=== PATIENT | female | born 1955 | race African-American/Black ===

== ENCOUNTER → 2017-03-27 | Day surgery (SDC) | payer MEDICARE ==
[~2017-03-27] MED LIST: ALBU.5I NEB; ANAS1TAB PO; ASPI-110 PO; ATOR20TA15 PO; CARV12.52 PO; CHLORHEXIDINE GLUCONATE 2 % 1 PACK (2 CLOTHS) TOPICAL PRN; FERR325T8 PO; FURO1TAB60 PO; INSULIN HUMAN REGULAR 1,000 UNITS/10 ML VIAL SQ PRN; LACTATED RINGER'S 1000 ML IV PRN; LEVEMIR SQ; LORA-373 PO; MECL-62 PO; METOPROLOL TARTRATE 25 MG TAB PO PRN; NITR0.4S SL; NOVOLOGP2 SQ; ONDA1TAB17 PO; POVIDONE IODINE 5% (ANTISEPSIS KIT) 4 APPLICATIONS EACH NARE PRN; PROT40TA PO; SERT-129 PO; SERT25TA83 PO; SODIUM CHLORID 0.9% 500 ML IV PRN; SPIR50TA PO; TRAM50TA PO; VITA1000 PO
[2017-03-27 07:45] VITALS: BP 174/87; PULSE 94; RESP 18; TEMP 98.3; O2SAT 95
--- NOTE | 2017-03-27 08:46 | RADRPT ---
EXAM DATE/TIME: 03/27/2017 07:33 [facility] COMPARISON: No previous studies available for comparison. INDICATIONS : Evaluate for pneumonia, pneumothorax or communicable disease. Pre-op, AV fistual. MEDICAL HISTORY : Hypertension. Hypercholesterolemia. Myocardial infarction. SURGICAL HISTORY : CABG. Stents, Vas Cath ENCOUNTER: Initial ACUITY: 1 day PAIN SCORE: 0/10 LOCATION: Bilateral chest FINDINGS: A single view of the chest demonstrates the lungs to be hypoaerated without evidence of mass, infiltr ate or effusion. Cardiomegaly. Previous median sternotomy. Right-sided jugular vascular catheter wit h tip at the cavoatrial junction. The cardiomediastinal contours are unremarkable. Osseous structure s are intact. CONCLUSION: Cardiomegaly with diminished lung volumes. Piotr Medina MD on March 27, 2017 at 8:45 Board Certified Radiologist. This report was verified electronically.
== END | disposition home or self-care (01) ==
LOC: HSDC 07:15
PROVIDERS: ATTEND Surgery
DX: N18.6 End stage renal disease (principal); I12.0 Hypertensive chronic kidney disease with stage 5 chronic kidney disease or end stage renal disease; I10 Essential (primary) hypertension
CPT/HCPCS: 71010; G0463; 99211

== ENCOUNTER → 2017-04-08 | Day surgery (SDC) | payer MEDICARE ==
[~2017-04-08] VITALS: Ht 172.7 cm; Wt 85.2 kg
[~2017-04-08] MED LIST changes: +BUPIVACAINE HCL PF 0.5% 30 ML VIAL ONE; +DO NOT ADM ANY ANTICOAGULANT DRUGS PRN; +HEPARIN SODIUM - IV 10,000 UNITS/10 ML VIAL ONE; +HEPARIN-NS/PF INJ 500 ML ONE; +Hemodialysis Vas Acc Cath PRN Heparin 1000 unit/ml Flush IV FLUSH; +Hemodialysis Vas Access Cath PRN NS Lock Flush IV FLUSH; +KETAMINE HCL 500 MG/5 ML VIAL ONE; +LIDOCAINE HCL 1% 20 ML VIAL ONE; +ONDANSETRON HCL 4 MG/2 ML VIAL IV PUSH ONE; +PROPOFOL 200 MG/20 ML AMP IV ONE; +PROTAMINE SULFATE 50 MG/5 ML VIAL ONE; +SODIUM CHLOR 0.9% 250 ML INJ 250 ML IV ONE; +STERILE WATER FOR INJECTION 20 ML VIAL IV ONE; +THROMBIN (TOPICAL) 20,000 UNIT SPRAY KIT ONE
--- NOTE | 2017-04-08 09:18 | PD.VS.PN ---
Pre-operative Note Pre-operative diagnosis: ESRD, need for HD access Planned procedure: L brachiobasilic AVF (1st stage) Interval History: Pt has been feeling well over past few days. Jace HD yesterday. No F/C/N/V or other changes that would preclude surgery. Labs: pending Blood: none needed Orders: NPO VANC 1g IV OCTOR Post-operative destination: PACU Operative site marked: Yes Consent: Informed consent has been obtained from Althea De León. I have explained the procedure in detail and discussed the risks, benefits, and potential complications. All questions have been answered. Patient contact information: daughter [phone] Leonel Lin MD Apr 08, 2017 09:18
[2017-04-08 10:28] LABS: INTERNATIONAL NORMALIZED RATIO 1.3 RATIO
[2017-04-08] MEDS: VANCOMYCIN HCL 1000 MG VIAL ONE ×2 (10:42→10:48)
[2017-04-08 10:43] LABS: BICARBONATE 24.5 MEQ/L (21.0-32.0); POTASSIUM 4.5 MEQ/L (3.5-5.1)
--- NOTE | 2017-04-08 10:45 | RADRPT ---
EXAM DATE/TIME: 04/08/2017 09:49 [facility] COMPARISON: CHEST SINGLE AP, March 27, 2017, 7:33. INDICATIONS : Evaluate for pneumonia, pneumothorax and communicable disease. Pre-op for upper extremity AV fistula creation. MEDICAL HISTORY : Hypertension. Diabetes mellitus type II. SURGICAL HISTORY : CABG. ENCOUNTER: Initial ACUITY: 1 day PAIN SCORE: 0/10 LOCATION: chest FINDINGS: Stable right IJ central venous catheter. Lungs are hypoaerated but are otherwise clear. Postsurgical features of prior median sternotomy with stable enlargement of cardiac silhouette. Remainder of exam is unchanged. CONCLUSION: 1. Compensated cardiomegaly. 2. No acute abnormality or significant interval change. Jake Boogie MD on April 08, 2017 at 10:42 Board Certified Radiologist. This report was verified electronically.
--- NOTE | 2017-04-08 11:27 | HHI.PR ---
Immediate Post Op Note Procedure Date: Apr 08, 2017 Pre Op Diagnosis: ESRD need for HD access Post Op Diagnosis: ESRD need for HD access Surgeon: Leonel Lin Service Worker Helper(s): Donya Schmidt Procedure: L brachiobasilic AVF (1st stage) Findings: 3mm vein, 3mm artery Additional Information: good thrill at conclusion and + Doppler signal at wrist Complications: none Specimen(s) removed: none Estimated blood loss: 30mL Anesthesia: MAC Drains: None Fluids: 250mL IVF Urinary Output (mLs): 0 Patient to: PACU Patient Condition: Good Date/Time of Procedure: SEE SURGICAL CARE RECORD Leonel Lin MD Apr 08, 2017 11:27
--- NOTE | 2017-04-08 11:51 | MP ---
cc: JOE LIN MD DATE OF SURGERY: 04/08/2017 PREOPERATIVE DIAGNOSIS End-stage renal disease, need for dialysis access. POSTOPERATIVE DIAGNOSIS End-stage renal disease, need for dialysis access. PROCEDURE Left brachiobasilic arteriovenous fistula. ATTENDING SURGEON Joe Lin. TURKEY BONER SURGEON Donya Schmidt. ANESTHESIA Local with sedation. INDICATIONS Mrs. De León is a 62-year-old lady who has end-stage renal disease, currently dialyzed with a right tunnel chest catheter every Friday, Friday and Friday. She is taken to the operating room for left brachiobasilic fistula. DESCRIPTION OF PROCEDURE Informed consent was obtained from the patient. She was taken to the operating room and placed supine on the operating table. An appropriate timeout was taken to ensure the patient's identity, operative site and planned procedure. One gram of vancomycin was initiated prior to skin incision and will be discontinued after the single preoperative dose. Vancomycin was chosen because of the patient's end-stage renal disease. Everyone in the room agreed with the timeout and we proceeded. The left arm was prepped and draped and locally anesthetized with 1% lidocaine. An incision was made over the distal aspect of the upper arm, carried down through subcutaneous tissue with electrocautery. The basilic vein was identified and dissected free for several centimeters. Side branches were ligated with 3-0 silk. The vein was marked for orientation, clamped distally and transected. The distal end was oversewn with 3-0 silk. The brachial artery was identified in the medial aspect of the incision and dissected free for several centimeters. The patient was systemically heparinized with 3000 units of IV heparin. Proximal and distal control of the brachial artery was obtained with profunda clamps and a longitudinal arteriotomy was made with an 11 blade and extended with [place] scissors. The vein was spatulated and sewn end-to-side with running 6-0 Prolene suture. At the completion it was flushed and noted to be hemostatic. The clamps were released. There was a nice thrill in the fistula and a Doppler signal in the wrist. The heparin was reversed with protamine. The wound was irrigated, infiltrated with Marcaine and closed with 2-0 Polysorb, 3-0 Polysorb and 4-0 Monocryl. The sponge and needle counts were correct at the end of the case. I was present and scrubbed and performed the entire procedure. MD ALLIE Mckoy/TRAN /11:32 AM /11:39 AM
[2017-04-08 13:13] VITALS: BP 176/112; PULSE 81; RESP 18; TEMP 97.8; O2SAT 98
--- NOTE | 2017-04-08 16:43 | EKG ---
Date Performed: 04/08/2017 Time Performed: 09:36:54 PTAGE: 62 years EKG: Sinus rhythm WITH FIRST DEGREE AV BLOCK POSSIBLE RIGHT VENTRICULAR CONDUCTION DELAY LEFT VENTRICULAR HYPERTROPHY AND ST-T CHANGE INFERIOR MYOCARDIAL INFARCTION , POSSIBLY ACUTE ANTEROLATERAL MYOCARDIAL INFARCTION , OF INDETERMINATE AGE Compared to prior tracing no significant change ACUTE MT PREVIOUS TRACING : 03/25/2012 15.12 DOCTOR: Carmen Gallegos Interpretating Date/Time 04/08/2017 16:40:34
--- NOTE | 2017-04-09 06:24 | MP ---
cc: LEONEL LIN MD DATE OF SURGERY 04/08/2017 PREOPERATIVE DIAGNOSIS End-stage renal disease. POSTOPERATIVE DIAGNOSIS End-stage renal disease. PROCEDURE Left brachial basilic arteriovenous fistula. ATTENDING SURGEON Leonel Lin MD ANESTHESIA Local with sedation. INDICATIONS Ms. Parks is a 62-year-old lady who has end-stage renal disease currently dialyzing through a right tunneled chest catheter. She needs permanent dialysis access and preoperative imaging suggested she had an adequate left basilic vein. After discussion was had with the patient and her family she was offered this in a two-staged procedure. DESCRIPTION OF PROCEDURE Informed consent was obtained from the patient. He was taken to the operating room and placed supine on the operating room table. An appropriate time-out was taken to ensure the identify of the patient, the operative site and planned procedure. The administration of 1 gram of vancomycin was initiated prior to the skin incision, will be discontinued after a single preoperative dose. Vancomycin was chosen because of the patient's end-stage renal disease. Everyone in the room agreed with the time-out and we proceeded. Her left arm was prepped and draped and locally anesthetized with 1% lidocaine. An incision was made over the distal upper arm, carried down through the subcutaneous tissue with electrocautery. The basilic vein was identified and dissected free for several cm, the side branches were ligated with 3-0 silk. The brachial artery was identified on the medial aspect of the incision and dissected free for several cm. The patient was systemically heparinized with 3000 units of IV heparin. The vein was marked for orientation. A right-angle clamp was used to clamp the distal aspect of the vein and the vein was transected and the distal end oversewn with 3-0 silk. Proximal and distal control of the brachial artery were obtained with profunda clamps and a longitudinal arteriotomy was made with an 11 blade, extended with [place] scissors. The vein was spatulated and sewn end-to-side with running 6-0 Prolene sutures. At the completion, it was flushed, noted to be hemostatic. There was a nice thrill in the fistula and a Doppler signal at the wrist. Heparin was reversed with protamine. The wound was infiltrated with Marcaine and closed with 2-0 Polysorb, 3-0 Polysorb and 4-0 Monocryl. The sponge and needle counts were correct at the end of the case. I was present and scrubbed and performed the entire procedure. Leonel Lin MD RJF/SSB /6:03 AM /6:09 AM
== END | disposition home or self-care (01) ==
LOC: HSDC 08:47
PROVIDERS: ATTEND Surgery
DX: I13.2 Hypertensive heart and chronic kidney disease with heart failure and with stage 5 chronic kidney disease, or end stage renal disease (principal); I50.21 Acute systolic (congestive) heart failure; E11.22 Type 2 diabetes mellitus with diabetic chronic kidney disease; N18.6 End stage renal disease; I44.0 Atrioventricular block, first degree; E03.9 Hypothyroidism, unspecified; G47.33 Obstructive sleep apnea (adult) (pediatric); Z95.1 Presence of aortocoronary bypass graft
CPT/HCPCS: 01844; 36821; 71010; 76937; 80048; 82948; 85610; 86850; 86900; 86901; 93005; J1644; J2405; J2720; J3370; J7050; J7120

== ENCOUNTER 2017-06-05 10:42 | Observation (INO) | payer MEDICARE ==
[2017-06-05] VITALS (8 sets, daily range): BP systolic 147; BP diastolic 80–88; PULSE 80–84; RESP 18; TEMP 98; O2SAT 96–98
[~2017-06-05] VITALS: Ht 152.4 cm; Wt 77.1 kg
[~2017-06-05 10:42] MED LIST changes: -ANAS1TAB PO; -ASPI-110 PO; +ASPI1TAB57 PO; -BUPIVACAINE HCL PF 0.5% 30 ML VIAL ONE; -CHLORHEXIDINE GLUCONATE 2 % 1 PACK (2 CLOTHS) TOPICAL PRN; -DO NOT ADM ANY ANTICOAGULANT DRUGS PRN; +FERR325T18 PO; -FERR325T8 PO; -HEPARIN SODIUM - IV 10,000 UNITS/10 ML VIAL ONE; -HEPARIN-NS/PF INJ 500 ML ONE; -Hemodialysis Vas Acc Cath PRN Heparin 1000 unit/ml Flush IV FLUSH; -Hemodialysis Vas Access Cath PRN NS Lock Flush IV FLUSH; -INSULIN HUMAN REGULAR 1,000 UNITS/10 ML VIAL SQ PRN; -KETAMINE HCL 500 MG/5 ML VIAL ONE; -LACTATED RINGER'S 1000 ML IV PRN; -LIDOCAINE HCL 1% 20 ML VIAL ONE; -LORA-373 PO; +LORA0.5T PO; -METOPROLOL TARTRATE 25 MG TAB PO PRN; -ONDA1TAB17 PO; -ONDANSETRON HCL 4 MG/2 ML VIAL IV PUSH ONE; -POVIDONE IODINE 5% (ANTISEPSIS KIT) 4 APPLICATIONS EACH NARE PRN; -PROPOFOL 200 MG/20 ML AMP IV ONE; -PROTAMINE SULFATE 50 MG/5 ML VIAL ONE; -SERT25TA83 PO; -SODIUM CHLOR 0.9% 250 ML INJ 250 ML IV ONE; -SODIUM CHLORID 0.9% 500 ML IV PRN; -SPIR50TA PO; -STERILE WATER FOR INJECTION 20 ML VIAL IV ONE; -THROMBIN (TOPICAL) 20,000 UNIT SPRAY KIT ONE
[2017-06-05] MEDS ORDERED: SODIUM CHLORID 0.9% 500 ML IV PRN (11:15)
[2017-06-05] MEDS ORDERED: POVIDONE IODINE 5% (ANTISEPSIS KIT) 4 APPLICATIONS EACH NARE PRN (11:15)
[2017-06-05] MEDS ORDERED: METOPROLOL TARTRATE 25 MG TAB PO PRN (11:15)
[2017-06-05] MEDS ORDERED: CHLORHEXIDINE GLUCONATE 2 % 1 PACK (2 CLOTHS) TOPICAL PRN (11:15)
[2017-06-05] MEDS ORDERED: LACTATED RINGER'S 1000 ML IV PRN (11:15)
[2017-06-05] MEDS ORDERED: INSULIN HUMAN REGULAR 1,000 UNITS/10 ML VIAL SQ PRN (11:15)
--- NOTE | 2017-06-05 11:17 | HHI.HP ---
History of Present Illness Chief Complaint: L UE AVF; ESRD History of Present Illness 62 yo female with ESRD, s/p L UE brachiobasilic AVF. Presents for 2nd stage ( elevation and transposition). No recent health issues over past weeks. No F/C/ N/V. Jace HD via R chest catheter yesterday. Past/Family/Social History Past Medical History ESRD brast CA CHF O2 dependence HTN GERD gout SURJIT DM Past Surgical History L UE AVF R ALND (breast CA) Social History nonsmoker Family History NC Home Medications Reported Medications Sertraline (Sertraline) 100 Mg Tab, 100 MG PO BID, #30 TAB 0 Refills 04/08/17 Albuterol Neb (Albuterol Neb) 2.5 Mg/0.5 Ml Neb, 2.5 MG NEB TID NEB Y for SHORTNESS OF BREATH, #90 NEBULE 0 Refills Note: The Albuterol Sulfate Inhalation Solution is concentrated and must be diluted. Read complete instructions carefully before using. 03/26/[address] (Aspirin 81) 81 Mg Tabdr, 81 MG PO DAILY, TAB 0 Refills 03/26/17 Atorvastatin (Atorvastatin) 20 Mg Tab, 20 MG PO HS for Cholesterol Management, # 30 TAB 0 Refills 03/26/17 Carvedilol (Carvedilol) 12.5 Mg Tab, 12.5 MG PO BID, #60 TAB 0 Refills 03/26/17 Cholecalciferol (Vitamin D-1000) 1,000 Unit Tab, 1000 UNITS PO DAILY for Nutritional Supplement, #1 BOTTLE 0 Refills 03/26/17 Ferrous Sulfate (Ferrous Sulfate) 325 Mg (65 Mg Iron) Tablet, 325 MG PO DAILY for Nutritional Supplement, #30 TAB 0 Refills 03/26/17 Furosemide (Lasix) 40 Mg Tab, 40 MG PO BID, #60 TAB 0 Refills 03/26/17 Insulin Aspart Inj (Novolog Inj) 1,000 Unit/10 Ml Vial, 0 SQ DIRECTED for Blood Sugar Management, #10 ML 0 Refills Sliding Scale as directed. 03/26/17 Insulin Detemir Inj (Levemir Inj) 1,000 unit/ 10 ML Vial, 25 UNITS SQ HS for Blood Sugar Management, VIAL 0 Refills Do not mix with any other Insulin. 03/26/17 Lorazepam (Lorazepam) 0.5 Mg Tab, 0.5 MG PO BID Y for ANXIETY, TAB 0 Refills 03/26/17 Meclizine (Meclizine) 25 Mg Tab, 25 MG PO DIRECTED Y for VERTIGO, TAB 0 Refills 03/26/17 Nitroglycerin SL (Nitrostat SL) 0.4 Mg Subl, 0.4 MG SL DIRECTED Y for CHEST PAIN, #100 TAB.SL 0 Refills 1 tablet under the tongue as needed for chest pain. Repeat every 5 minutes for a total of 3 DOSES or call 911 if NO relief. 03/26/17 Pantoprazole (Protonix) 40 Mg Tab, 40 MG PO DAILY for Reflux, #30 TAB 0 Refills 03/26/17 Tramadol (Tramadol) 50 Mg Tab, 50 MG PO Q4H Y for PAIN, TAB 0 Refills 03/26/17 Coded Allergies: Sulfa (Sulfonamide Antibiotics) (Unverified Allergy, Severe, 03/27/17) peanut (Unverified Allergy, Severe, Hives, 03/27/17) ITCHING AND HIVES Review of Systems Respiratory: COMPLAINS OF: Snoring, Shortness of breath Cardiovascular: COMPLAINS OF: Lower Extremity Edema, DENIES: Chest pain Physical Exam Neuro: alert, oriented HEENT: NC/AT; anicteric sclera Neck: trachea midline Heart: reg rate Lungs: clear; R chest catheter in place Vascular: + L UE thrill; + seroma at AC pending Caprini VTE Risk Assessment Caprini VTE Risk Assessment: Mod/High Risk (score >= 2) Caprini Risk Assessment Model Point Value = 1 Point Value = 2 Point Value = 3 Point Value = 5 Age 41-60 Minor surgery BMI > 25 kg/m2 Swollen legs Varicose veins or History of unexplained or recurrent spontaneous Oral contraceptives or hormone replacement Sepsis (< 1 month) Serious lung disease, including pneumonia (< 1 month) Abnormal pulmonary function Acute myocardial infarction Congestive heart failure (< 1 month) History of inflammatory bowel disease Medical patient at bed rest Age 61-74 Arthroscopic surgery Major open surgery (> 45 min) Laparoscopic surgery (> 45 min) Malignancy Confined to bed (> 72 hours) Immobilizing plaster cast Central venous access Age >= 75 History of VTE Family history of VTE Factor V Leiden Prothrombin [id number] Lupus anticoagulant Anticardiolipin antibodies Elevated serum homocysteine Heparin-induced thrombocytopenia Other congenital or acquired thrombophilia Stroke (< 1 month) Elective arthroplasty Hip, pelvis, or leg fracture Acute spinal cord injury (< 1 month) Prophylaxis Regimen Total Risk Factor Score Risk Level Prophylaxis Regimen 0-1 Low Early ambulation 2 Moderate Order ONE of the following: *Sequential Compression Device (SCD) *Heparin 5000 units SQ BID 3-4 Higher Order ONE of the following medications: *Heparin 5000 units SQ TID *Enoxaparin/Lovenox 40 mg SQ daily (WT < 150 kg, CrCl > 30 mL/min) *Enoxaparin/Lovenox 30 mg SQ daily (WT < 150 kg, CrCl > 10-29 mL/min) *Enoxaparin/Lovenox 30 mg SQ BID (WT < 150 kg, CrCl > 30 mL/min) AND/OR *Sequential Compression Device (SCD) 5 or more Highest Order ONE of the following medications: *Heparin 5000 units SQ TID (Preferred with Epidurals) *Enoxaparin/Lovenox 40 mg SQ daily (WT < 150 kg, CrCl > 30 mL/min) *Enoxaparin/Lovenox 30 mg SQ daily (WT < 150 kg, CrCl > 10-29 mL/min) *Enoxaparin/Lovenox 30 mg SQ BID (WT < 150 kg, CrCl > 30 mL/min) AND *Sequential Compression Device (SCD) Assessment and Plan Plan L UE access revision (transposition) Pt and daughter understand surgery and all questions answered. To OR. Operative site marked Discharge Planning likely tomorrow (Fri) after HD Daughter [phone] Leonel Lin MD Jun 05, 2017 11:17
[2017-06-05] MEDS ORDERED: Hemodialysis Vas Acc Cath PRN Heparin 1000 unit/ml Flush IV FLUSH (11:30)
[2017-06-05] MEDS ORDERED: Hemodialysis Vas Access Cath PRN NS Lock Flush IV FLUSH (11:30)
[2017-06-05] MEDS ORDERED: HEPARIN SODIUM - IV 10,000 UNITS/10 ML VIAL ONE ×2 (11:34→13:05)
[2017-06-05] MEDS ORDERED: PROTAMINE SULFATE 50 MG/5 ML VIAL ONE ×2 (11:34→13:05)
[2017-06-05] MEDS ORDERED: HEPARIN-NS/PF INJ 500 ML ONE ×2 (11:35→13:05)
[2017-06-05] MEDS ORDERED: BUPIVACAINE HCL PF 0.5% 30 ML VIAL ONE ×2 (11:35→13:05)
[2017-06-05] MEDS ORDERED: THROMBIN (TOPICAL) 20,000 UNIT SPRAY KIT ONE ×2 (11:35→13:05)
--- NOTE | 2017-06-05 11:35 | RADRPT ---
EXAM DATE/TIME: 06/05/2017 11:13 [facility] COMPARISON: CHEST SINGLE AP, April 08, 2017, 9:49. INDICATIONS : Pre op fistula repair. Evaluate for pneumothorax, pneumonia, or communicable diseases. MEDICAL HISTORY : Hypertension. Hypercholesterolemia. Myocardial infarction. SURGICAL HISTORY : CABG. Stents, Vas Cath ENCOUNTER: Initial ACUITY: 1 day PAIN SCORE: 0/10 LOCATION: Bilateral chest FINDINGS: A single AP portable erect view of the chest demonstrates the lungs to be symmetrically aerated witho ut evidence of mass, infiltrate or effusion. The patient is again noted to be status post median ster notomy. Right central venous line remains in place. The heart size remains enlarged with no perihila r edema. Mild atherosclerotic changes are present in the aorta. Osseous structures are intact. CONCLUSION: Stable appearance with no acute cardiopulmonary disease. Jack Haro MD on June 05, 2017 at 11:32 Board Certified Radiologist. This report was verified electronically.
[2017-06-05] MEDS ORDERED: LEVO25TA4 PO (11:58)
[2017-06-05] MEDS ORDERED: PHENYLEPH/NS 1000 MCG/10 ML SYR IV ONE (12:00)
[2017-06-05] MEDS ORDERED: LIDOCAINE HCL 1% PF 5 ML SYRINGE OTHER ONE (12:00)
[2017-06-05] MEDS ORDERED: PROPOFOL 200 MG/20 ML AMP IV ONE (12:00)
[2017-06-05] MEDS ORDERED: SODIUM CHLOR 0.9% 250 ML INJ 250 ML IV ONE (12:00)
[2017-06-05] MEDS ORDERED: ROCURONIUM INJ 50 MG/5 ML SYRINGE IV PUSH ONE (12:00)
[2017-06-05 12:01] LABS: BASOPHIL # 0.1 TH/MM3 (0-0.2); BASOPHIL % 1.2 % (0.0-2.0); EOSINOPHIL # 0.1 TH/MM3 (0-0.4); EOSINOPHIL % 2.1 % (0.0-4.0); HEMATOCRIT 40.2 % (35.0-46.0); HEMO FLAGS DIFF FINAL; LYMPH % 18.3 % (9.0-44.0); LYMPHOCYTE # 1.2 TH/MM3 (1.0-4.8); MEAN CELL VOLUME 96.1 FL (80.0-100.0); MEAN CORPUSCULAR HEMOGLOBIN 30.5 PG (27.0-34.0); MEAN CORPUSCULAR HGB CONC 31.7 % (32.0-36.0); MONO % 16.1 % (0.0-8.0); NEUT % 62.3 % (16.0-70.0); PLATELET COUNT 204 TH/MM3 (150-450); RED BLOOD COUNT 4.18 MIL/MM3 (4.00-5.30); RED CELL DISTRIBUTION WIDTH 18.6 % (11.6-17.2); WHITE BLOOD COUNT 6.3 TH/MM3 (4.0-11.0)
[2017-06-05 12:11] LABS: APTT (PATIENT) 29.4 SEC (24.3-30.1); INTERNATIONAL NORMALIZED RATIO 1.1 RATIO; PROTHROMBIN TIME - PATIENT 11.6 SEC (9.8-11.6)
[2017-06-05 12:16] LABS: BICARBONATE 21.8 MEQ/L (21.0-32.0); POTASSIUM 4.5 MEQ/L (3.5-5.1)
[2017-06-05] MEDS ORDERED: VANCOMYCIN HCL 1000 MG VIAL ONE (13:06)
--- NOTE | 2017-06-05 15:27 | HHI.PR ---
Immediate Post Op Note Procedure Date: Jun 05, 2017 Pre Op Diagnosis: ESRD Post Op Diagnosis: ESRD Surgeon: Leonel Lin Counterintelligence Analyst(s): Wayne Wynn Procedure: LEFT upper extremity access revision Findings: mid-AV stenosis, resected with primary venovenostomy Additional Information: + thrill and + Doppler signal in wrist Complications: none Specimen(s) removed: none for pathology Estimated blood loss: 150mL Anesthesia: LMA Drains: HUONG Fluids: 650mL Patient to: PACU Patient Condition: Good Implant/Devices: SEE IMPLANT LOG (if applicable) Date/Time of Procedure: SEE SURGICAL CARE RECORD Leonel Lin MD Jun 05, 2017 15:27
[2017-06-05] MEDS ORDERED: DEXTROSE 50% IN WATER 50 ML VIAL(D50) IV PUSH PRN (15:30)
[2017-06-05] MEDS ORDERED: MAGNESIUM HYDROXIDE SUSP 30 ML CUP PO PRN (15:30)
[2017-06-05] MEDS ORDERED: NITROGLYCERIN 0.4 MG SL 25 TABS/BTL SL PRN ×2 (15:30→19:30)
[2017-06-05] MEDS ORDERED: LORazepam 0.5 MG TAB PO PRN (15:30)
[2017-06-05] MEDS ORDERED: MORPHINE SULFATE 4 MG/ML INJ IV PUSH PRN (15:30)
[2017-06-05] MEDS ORDERED: HYDROmorphone HCL 2 MG TAB PO PRN (15:30)
[2017-06-05] MEDS ORDERED: BISACODYL 10 MG SUPP RECTAL PRN (15:30)
[2017-06-05] MEDS ORDERED: LACTULOSE SYRUP 20 GM/30 ML CUP PO PRN (15:30)
[2017-06-05] MEDS ORDERED: GLUCAGON 1 MG/ML VIAL OTHER PRN (15:30)
[2017-06-05] MEDS ORDERED: MECLIZINE HCL 25 MG TAB PO PRN (15:30)
[2017-06-05] MEDS ORDERED: traMADol HCL 50 MG TAB PO PRN (15:30)
[2017-06-05] MEDS ORDERED: SENNOSIDES 8.6 MG TAB PO PRN (15:30)
[2017-06-05] MEDS ORDERED: RESP: ALBUTEROL CONC 2.5 MG/0.5 ML NEB NEB PRN (15:30)
[2017-06-05] MEDS ORDERED: *ONDANSETRON 4 MG VIAL PERIprocedural Use ONLY ONE (15:47)
[2017-06-05] MEDS: INSULIN ASPART SUPPLEMENTAL SCALE SQ SCH ×2 (16:01→20:54)
[2017-06-05] MEDS ORDERED: *morphine SULFATE 8 MG/ML PERIprocedure ONLY ONE (16:17)
[2017-06-05] MEDS ORDERED: DO NOT ADM ANY ANTICOAGULANT DRUGS PRN (16:30)
[2017-06-05] MEDS ORDERED: SODIUM CHLOR 0.9% 1000 ML INJ 1,000 ML OTHER PRN ×2 (19:16)
[2017-06-05] MEDS ORDERED: SODIUM CHLOR 0.9% 1000 ML INJ 1,000 ML IV PRN (19:16)
--- NOTE | 2017-06-05 19:28 | PD.CONS ---
HPI Service Nephrology Consult Requested By Dr. Lin Reason for Consult ESRD Primary Care Physician Kalani Burgess MD History of Present Illness Patient is a 62-year-old female with history of diabetes, hypertension, hyperlipidemia, coronary artery disease she is here for AV fistula site and procedure and this was carried out, patient dialysis days are Friday and Friday, she follows with Dr. Aragon last dialysis was yesterday Review of Systems Constitutional: COMPLAINS OF: Fatigue Musculoskeletal: COMPLAINS OF: Joint pain, Muscle aches, Stiffness Psychiatric: COMPLAINS OF: Anxiety Past Family Social History Allergies: Coded Allergies: Sulfa (Sulfonamide Antibiotics) (Unverified Allergy, Severe, 06/05/17) peanut (Unverified Allergy, Severe, Hives, 06/05/17) ITCHING AND HIVES Past Medical History Diabetes Hypertension Congestive heart failure. Coronary artery disease Hyperlipidemia End-stage renal disease Breast cancer History of radiation and chemotherapy in pill form Has asthma Anemia Hypothyroid Past Surgical History Ovary and cyst removal 30 years ago Bilateral mastectomy 2011 Coronary artery bypass grafting 3 in 2012 Coronary stent AV fistula PermCath Reported Medications Reported Meds & Active Scripts Active Reported Levothyroxine (Levothyroxine Sodium) 25 Mcg Tab 25 Mcg PO DAILY Sertraline (Sertraline HCl) 100 Mg Tab 100 Mg PO BID Albuterol Neb (Albuterol Sulfate) 2.5 Mg/0.5 Ml Neb 2.5 Mg NEB TID NEB PRN Note: The Albuterol Sulfate Inhalation Solution is concentrated and must be diluted. Read complete instructions carefully before using. Aspirin 81 (Aspirin) 81 Mg Tabdr 81 Mg PO DAILY Atorvastatin (Atorvastatin Calcium) 20 Mg Tab 20 Mg PO HS Carvedilol 12.5 Mg Tab 12.5 Mg PO BID Lasix (Furosemide) 40 Mg Tab 40 Mg PO BID Novolog Inj (Insulin Aspart) 1,000 Unit/10 Ml Vial 0 SQ DIRECTED Sliding Scale as directed. Levemir Inj (Insulin Detemir) 1,000 unit/ 10 ML Vial 25 Units SQ HS Do not mix with any other Insulin. Lorazepam 0.5 Mg Tab 0.5 Mg PO BID PRN Meclizine (Meclizine HCl) 25 Mg Tab 25 Mg PO DIRECTED PRN Nitrostat SL (Nitroglycerin) 0.4 Mg Subl 0.4 Mg SL DIRECTED PRN 1 tablet under the tongue as needed for chest pain. Repeat every 5 minutes for a total of 3 DOSES or call 911 if NO relief. Tramadol (Tramadol HCl) 50 Mg Tab 50 Mg PO Q4H PRN Active Ordered Medications Current Medications Medications (Trade) Dose Ordered Sig/Gamaliel Route Start Time Stop Time Status Last Admin Lactated Ringer's 1,000 ml @ 30 mls/hr Q24H PRN IV 06/05/17 11:15 06/08/17 11:14 Sodium Chloride 500 ml @ 30 mls/hr [id number] PRN IV 06/05/17 11:15 06/08/17 11:14 06/05/17 11:50 (Lopressor) 25 mg COMPOSING ROOM MACHINIST APPRENTICE PRN PO 06/05/17 11:15 06/08/17 11:14 06/05/17 12:29 (Betadine 5% Antisepsis Kit) 1 applic COMPOSING ROOM MACHINIST APPRENTICE PRN EACH NARE 06/05/17 11:15 06/08/17 11:14 (Chlorhexidine 2% Cloth) 3 pack COMPOSING ROOM MACHINIST APPRENTICE PRN TOPICAL 06/05/17 11:15 06/08/17 11:14 06/05/17 11:00 (NovoLIN R INJ) See Protocol Table ... COMPOSING ROOM MACHINIST APPRENTICE PRN SQ 06/05/17 11:15 06/08/17 11:14 (NS Flush) 5 ml UNSCH PRN IV FLUSH 06/05/17 11:30 (Heparin Inj) 2,000 units UNSCH PRN IV FLUSH 06/05/17 11:30 (Roxicodone) 5 mg Q4H PRN PO 06/05/17 15:30 (Dilaudid) 2 mg Q4H PRN PO 06/05/17 15:30 (Morphine Inj) 2 mg Q1H PRN IV PUSH 06/05/17 15:30 (Heparin Inj) 5,000 units Q8H SQ 06/06/17 15:00 (Ivy-Colace) 1 tab BID PO 06/05/17 21:00 (Milk Of Magnesia Liq) 30 ml Q12H PRN PO 06/05/17 15:30 (Senokot) 17.2 mg Q12H PRN PO 06/05/17 15:30 (Dulcolax Supp) 10 mg DAILY PRN RECTAL 06/05/17 15:30 (Lactulose Liq) 30 ml DAILY PRN PO 06/05/17 15:30 (D50w (Vial) Inj) 50 ml UNSCH PRN IV PUSH 06/05/17 15:30 (Glucagon Inj) 1 mg UNSCH PRN OTHER 06/05/17 15:30 (NovoLOG SUPPLEMENTAL SCALE) 1 ACHS SLIDING SCALE SQ 06/05/17 17:00 (Albuterol Concentrated Neb) 2.5 mg TID NEB PRN NEB 06/05/17 15:30 (Ecotrin Ec) 81 mg DAILY PO 06/06/17 09:00 (Lipitor) 20 mg HS PO 06/05/17 21:00 (Coreg) 12.5 mg BID PO 06/05/17 21:00 (Lasix) 40 mg BID PO 06/05/17 21:00 (Synthroid) 25 mcg DAILY@0600 PO 06/06/17 06:00 (Ativan) 0.5 mg BID PRN PO 06/05/17 15:30 (Antivert) 25 mg Q12HR PRN PO 06/05/17 15:30 (Nitrostat Sl) 0.4 mg Q1HR PRN SL 06/05/17 15:30 (Zoloft) 100 mg BID PO 06/05/17 21:00 Miscellaneous Information ALL NURSING DEPARTME... UNSCH PRN .XX 06/05/17 16:30 06/06/17 16:29 Family History Noncontributory Social History Denies smoking or use of alcohol occasional Physical Exam Vital Signs Vital Signs Date Time Temp Pulse Resp B/P (MAP) Pulse Ox O2 Delivery O2 Flow Rate FiO2 06/05/17 18:45 97.8 80 16 148/70 (96) 96 Nasal Cannula 2 06/05/17 18:00 79 16 140/68 (92) 96 Nasal Cannula 2 06/05/17 17:30 78 16 138/64 (88) 95 Nasal Cannula 2 06/05/17 17:00 79 16 144/67 (92) 96 Nasal Cannula 2 06/05/17 16:45 80 16 150/70 (96) 96 Nasal Cannula 2 06/05/17 16:30 98.1 81 16 158/69 (98) 95 Nasal Cannula 2 06/05/17 16:15 81 16 160/71 (100) 99 Nasal Cannula 3 06/05/17 16:00 80 16 159/77 (104) 96 Nasal Cannula 3 06/05/17 15:45 80 16 166/72 (103) 98 Nasal Cannula 4 06/05/17 15:35 98.4 81 24 146/72 (96) 96 Nasal Cannula 4 Physical Exam GENERAL: Well-nourished, well-developed patient. SKIN: Warm and dry. HEAD: Normocephalic. EYES: No scleral icterus. No injection or drainage. NECK: Supple, trachea midline. No JVD or lymphadenopathy. CARDIOVASCULAR: Regular rate and rhythm without murmurs, gallops, or rubs. RESPIRATORY: Breath sounds equal bilaterally. No accessory muscle use. GASTROINTESTINAL: Abdomen soft, non-tender, nondistended. EXTREMITIES: No cyanosis, or edema. AV fistula left arm with drain in place NEUROLOGICAL: Awake, alert, and oriented x 3. Non-focal. Laboratory Laboratory Tests Test 06/05/17 11:40 White Blood Count 6.3 Red Blood Count 4.18 Hemoglobin 12.8 Hematocrit 40.2 Mean Corpuscular Volume 96.1 Mean Corpuscular Hemoglobin 30.5 Mean Corpuscular Hemoglobin Concent 31.7 Red Cell Distribution Width 18.6 Platelet Count 204 Mean Platelet Volume 8.2 Neutrophils (%) (Auto) 62.3 Lymphocytes (%) (Auto) 18.3 Monocytes (%) (Auto) 16.1 Eosinophils (%) (Auto) 2.1 Basophils (%) (Auto) 1.2 Neutrophils # (Auto) 4.0 Lymphocytes # (Auto) 1.2 Monocytes # (Auto) 1.0 Eosinophils # (Auto) 0.1 Basophils # (Auto) 0.1 CBC Comment DIFF FINAL Differential Comment Prothrombin Time 11.6 Prothromb Time International Ratio 1.1 Activated Partial Thromboplast Time 29.4 Blood Urea Nitrogen 51 Creatinine 6.33 Random Glucose 93 Calcium Level 9.7 Sodium Level 138 Potassium Level 4.5 Chloride Level 104 Carbon Dioxide Level 21.8 Anion Gap 12 Estimat Glomerular Filtration Rate 8 Result Diagram: 06/05/17 1140 06/05/17 1140 Assessment and Plan Problem List: (1) ESRD (end stage renal disease) on dialysis ICD Codes: N18.6 - End stage renal disease; Z99.2 - Dependence on renal dialysis Plan: Hemodialysis will be planned for tomorrow Patient can be discharged once Dr. Feezor clears her Continue supportive care (2) Diabetes ICD Codes: E11.9 - Type 2 diabetes mellitus without complications Plan: Continue to monitor (3) Hypertension ICD Codes: I10 - Essential (primary) hypertension Plan: Monitor blood pressure Charito Baugh MD Jun 05, 2017 19:28
[2017-06-05] MEDS ORDERED: HEPARIN SODIUM - IV 10,000 UNITS/10 ML VIAL PRN (19:30)
[2017-06-05] MEDS ORDERED: SODIUM CHLORIDE 0.9% FLUSH 10 ML FLUSH IV FLUSH PRN (19:30)
[2017-06-05] MEDS ORDERED: EPOETIN ALFA 10,000 UNITS/ML VIAL IV PUSH PRN (19:30)
[2017-06-05] MEDS ORDERED: GENTAMICIN SULFATE (DIALYSIS USE ONLY) 20 MG/2 ML VIAL OTHER PRN (19:30)
[2017-06-05] MEDS ORDERED: HEPARIN SODIUM - IV 10,000 UNITS/10 ML VIAL IV FLUSH PRN (19:30)
[2017-06-05] MEDS ORDERED: cloNIDine HCL 0.1 MG TAB PO PRN (19:30)
[2017-06-05] MEDS ORDERED: MANNITOL 12.5 GM/50 ML VIAL IV PRN (19:30)
[2017-06-05] MEDS ORDERED: ONDANSETRON HCL 4 MG/2 ML VIAL IV PUSH PRN (19:30)
[2017-06-05] MEDS ORDERED: diphenhydrAMINE HCL 25 MG CAP PO PRN (19:30)
[2017-06-05] MEDS ORDERED: ACETAMINOPHEN 325 MG TAB PO PRN (19:30)
[2017-06-05] MEDS ORDERED: GELATIN 12 MM/7 MM FOAM TOP PRN (19:30)
[2017-06-05] MEDS ORDERED: ALBUMIN 25% INJ 100 ML IV PRN (19:30)
[2017-06-05] MEDS: CARVEDILOL 12.5 MG TAB PO SCH (20:52)
[2017-06-05] MEDS: FUROSEMIDE 40 MG TAB PO SCH (20:52)
[2017-06-05] MEDS: DOCUSATE SODIUM 50 MG/SENNA 8.6 MG TAB PO SCH (20:53)
[2017-06-05] MEDS: SERTRALINE HCL 100 MG TAB PO SCH (20:54)
[2017-06-05] MEDS ORDERED: ATORVASTATIN 20 MG TAB PO SCH (21:00)
--- NOTE | 2017-06-05 22:56 | MP ---
cc: JOE LIN DATE OF SURGERY 06/05/17 PRIMARY DIAGNOSIS End-stage renal disease, needs dialysis access POSTOPERATIVE DIAGNOSIS End-stage renal disease, needs dialysis access PROCEDURE NOTE Left upper extremity access revision (superficialization and excision of the sclerotic segment). ATTENDING SURGEON Frantz Lin MD DIRECTOR OF QUALITY SURGEON Rosa Daniel ANESTHESIA General INDICATIONS Ms. Penn is a 62-year old lady who has a left upper extremity access. She is on dialysis and she presents for second stage of brachial basilic fistula. She was found upon duplex preoperatively to have a mid distal stenosis. PROCEDURE IN DETAIL Informed consent was obtained from the patient. She was taken to operating room and placed supine on the operating table. Appropriate time-out was taken to ensure the patient's identity, operative site and planned procedure. The administration of 1 gram of vancomycin was initiated prior to skin incision, will be discontinued after a single preoperative dose. Everyone in the room agreed with time-out and we proceeded. Vancomycin was chosen because of the patient's end-stage renal disease. The left arm was prepped and draped. Incision made over the distal aspect of upper arm through a previous incision, carried down through the subcutaneous tissue with electrocautery. The basilic vein was identified. It was noted to be quite large with an excellent thrill in this. We dissected down proximally. There was a seroma that was identified. It was evacuated without difficulty. The dissection then continued down to the axillary vein. In the mid segment of basilic vein there was a sclerotic area. The side branch of the basilic vein were ligated between 3-0 silks. The patient was systemically heparinized. Proximal and distal control of the basilic vein was obtained with profunda clamps and the sclerotic segment was resected and a primary end-to-end venovenous anastomosis was performed with running 5-0 Prolene suture. The incision was flushed, noted to be hemostatic. There was a nice thrill throughout the fistula. The heparin was reversed with protamine. The wound was made hemostatic. A 12-10 size HUONG drain was placed through separate stab wound and secured to the skin with 2-0 nylon. The tissue was reapproximated underneath the fistula with running 2-0 Polysorb and then the superficial layers were reapproximated with 3-0 Polysorb and 4-0 Monocryl. The sponge and needle counts were correct at the end of the case. I was present and scrubbed and performed the entire procedure. MD ALLIE Mkcoy/ /4:40 PM /10:38 PM ALFREDO
[2017-06-06] VITALS (16 sets, daily range): BP systolic 130–152; BP diastolic 80–90; PULSE 80–93; RESP 18; TEMP 98.2–98.7; O2SAT 98–100
[2017-06-06] MEDS ORDERED: LEVOTHYROXINE SODIUM 25 MCG TAB PO SCH (06:00)
[2017-06-06 06:24] LABS: HEMATOCRIT 38.2 % (35.0-46.0); MEAN CELL VOLUME 97.4 FL (80.0-100.0); MEAN CORPUSCULAR HEMOGLOBIN 30.5 PG (27.0-34.0); MEAN CORPUSCULAR HGB CONC 31.3 % (32.0-36.0); PLATELET COUNT 175 TH/MM3 (150-450); RED BLOOD COUNT 3.92 MIL/MM3 (4.00-5.30); RED CELL DISTRIBUTION WIDTH 18.5 % (11.6-17.2); REVIEW FLAG FINAL; WHITE BLOOD COUNT 7.6 TH/MM3 (4.0-11.0)
[2017-06-06 06:53] LABS: BICARBONATE 21.1 MEQ/L (21.0-32.0); POTASSIUM 5.2 MEQ/L (3.5-5.1)
[2017-06-06] MEDS: INSULIN ASPART SUPPLEMENTAL SCALE SQ SCH ×2 (08:00→13:51)
[2017-06-06] MEDS: DOCUSATE SODIUM 50 MG/SENNA 8.6 MG TAB PO SCH (09:00)
[2017-06-06] MEDS ORDERED: ASPIRIN EC 81 MG TABEC PO SCH (09:00)
[2017-06-06] MEDS ORDERED: traMADol HCL 50 MG TAB PO PRN (09:00)
--- NOTE | 2017-06-06 12:14 | PD.VS.PN ---
Subjective POD #: 1 Procedure(s): Left upper extremity access revision (superficialization and excision of the sclerotic segment). Subjective/Hospital Course Pt c/o LUE incisional pain Pain controlled Pt denied hand pain UE warm w/ motor intact HUONG drain removed from LUE w/o difficulty + thrill palpated near LUE AVF Objective Vitals/I&O Date Time Temp Pulse Resp B/P (MAP) Pulse Ox O2 Delivery O2 Flow Rate FiO2 06/06/17 10:43 98 06/06/17 08:01 98.7 82 18 130/80 (97) 100 06/06/17 08:00 82 06/06/17 07:01 83 06/06/17 06:00 82 06/06/17 05:45 18 06/06/17 05:00 82 06/06/17 04:44 98.2 88 18 133/88 (103) 98 06/06/17 04:00 80 06/06/17 03:00 80 06/06/17 02:00 80 06/06/17 01:00 82 06/06/17 00:00 82 06/05/17 23:01 98.0 83 18 147/88 (107) 98 06/05/17 23:00 81 06/05/17 22:00 80 06/05/17 21:08 96 Nasal Cannula 2.00 06/05/17 21:00 80 06/05/17 20:00 80 06/05/17 19:01 98.0 84 18 147/80 (102) 98 06/05/17 19:00 84 06/05/17 18:45 97.8 80 16 148/70 (96) 96 Nasal Cannula 2 06/05/17 18:00 79 16 140/68 (92) 96 Nasal Cannula 2 06/05/17 17:30 78 16 138/64 (88) 95 Nasal Cannula 2 06/05/17 17:00 79 16 144/67 (92) 96 Nasal Cannula 2 06/05/17 16:45 80 16 150/70 (96) 96 Nasal Cannula 2 06/05/17 16:30 98.1 81 16 158/69 (98) 95 Nasal Cannula 2 06/05/17 16:15 81 16 160/71 (100) 99 Nasal Cannula 3 06/05/17 16:00 80 16 159/77 (104) 96 Nasal Cannula 3 06/05/17 15:45 80 16 166/72 (103) 98 Nasal Cannula 4 06/05/17 15:35 98.4 81 24 146/72 (96) 96 Nasal Cannula 4 06/06/17 06/06/17 06/06/17 07:00 15:00 23:00 Intake Total 240 ml Output Total 0 ml Balance 240 ml Exam: GENERAL: Alert and oriented X 3, NAD , GCS 15 SKIN: Warm and dry/ incision to LUE intact with sutures at the distal end/ NO R/ D/S RESPIRATORY: Breath sounds equal bilaterally. No accessory muscle use. R/L radial pulses palpable Equal glue maker strength/ UE warm w/ motor intact Pt w/o hand pain Laboratory Laboratory Tests Test 06/06/17 05:54 White Blood Count 7.6 Red Blood Count 3.92 Hemoglobin 12.0 Hematocrit 38.2 Mean Corpuscular Volume 97.4 Mean Corpuscular Hemoglobin 30.5 Mean Corpuscular Hemoglobin Concent 31.3 Red Cell Distribution Width 18.5 Platelet Count 175 Mean Platelet Volume 7.9 Blood Urea Nitrogen 63 Creatinine 7.63 Random Glucose 88 Calcium Level 9.1 Sodium Level 139 Potassium Level 5.2 Chloride Level 105 Carbon Dioxide Level 21.1 Anion Gap 13 Estimat Glomerular Filtration Rate 7 Assessment and Plan Assessment: (1) Hypertension Status: Chronic (2) ESRD (end stage renal disease) on dialysis Status: Chronic (3) Diabetes Plan POD #1 s/p L UE access revision (transposition) pain controlled pt doing well + thrill palpated Pt w/o hand pain Plan D/C today after HD Discussed and reviewed post operative AVF care and management Arranged [facility] op f[facility] [phone] Discharge Planning Today after HD Arranged PO F/U Daughter [phone] Raquel Pratt Jun 06, 2017 12:14
[2017-06-06] MEDS ORDERED: TYLETAB34 PO (12:19)
--- NOTE | 2017-06-06 12:26 | PD.VS.DC ---
Discharge Summary Admission Date: Jun 05, 2017 at 15:32 Discharge Date: Jun 06, 2017 Admission Diagnosis: (1) ESRD (end stage renal disease) on dialysis (2) Diabetes (3) Hypertension Discharge Diagnosis: (1) Hypertension ICD Codes: I10 - Essential (primary) hypertension Status: Chronic (2) ESRD (end stage renal disease) on dialysis ICD Codes: N18.6 - End stage renal disease; Z99.2 - Dependence on renal dialysis Status: Chronic (3) Diabetes ICD Codes: E11.9 - Type 2 diabetes mellitus without complications Status: Chronic Brief History from admission 62 yo female with ESRD, s/p L UE brachiobasilic AVF. Presents for 2nd stage (elevation and transposition). N o recent health issues over past weeks. No F/C/N/V Jace HD via R chest catheter yesterday. Procedure(s): Left upper extremity access revision (superficialization and excision of the sclerotic segment). Significant Findings GENERAL: Alert and oriented X 3, NAD , GCS 15 SKIN: Warm and dry/ incision to LUE intact with sutures at the distal end/ NO R/ D/S RESPIRATORY: Breath sounds equal bilaterally. No accessory muscle use. R/L radial pulses palpable Equal belt loop cutter strength/ UE warm w/ motor intact Pt w/o hand pain Laboratory Tests Test 06/05/17 11:40 06/06/17 05:54 Mean Corpuscular Hemoglobin Concent 31.7 % (32.0-36.0) 31.3 % (32.0-36.0) Red Cell Distribution Width 18.6 % (11.6-17.2) 18.5 % (11.6-17.2) Monocytes (%) (Auto) 16.1 % (0.0-8.0) Monocytes # (Auto) 1.0 TH/MM3 (0-0.9) Blood Urea Nitrogen 51 MG/DL (7-18) 63 MG/DL (7-18) Creatinine 6.33 MG/DL (0.50-1.00) 7.63 MG/DL (0.50-1.00) Estimat Glomerular Filtration Rate 8 ML/MIN (>89) 7 ML/MIN (>89) Red Blood Count 3.92 MIL/MM3 (4.00-5.30) Potassium Level 5.2 MEQ/L (3.5-5.1) Hospital Course: 62 yo female with ESRD s/p L UE brachiobasilic AVF Presents for 2nd stage (elevation and transposition). Jace HD via R chest catheter today POD 1 HUONG drain with minimal drainage - Removed w/o difficulty Pt D/C home post HD Arranged OP F/U Allergies Coded Allergies Type Severity Reaction Last Updated Verified Sulfa (Sulfonamide Antibiotics) Allergy Severe 06/05/17 No peanut Allergy Severe Hives 06/05/17 No Recent Impressions Chest X-Ray 06/05/17 1108 Signed Impressions: Service Date/Time: May 11:13 - CONCLUSION: Stable appearance with no acute cardiopulmonary disease. Jack Haro MD 06/04/17 06/04/17 06/05/17 06/05/17 06/06/17 06/06/17 06:00 18:00 06:00 18:00 06:00 18:00 Intake Total 650 ml 360 ml Output Total 150 ml 0 ml Balance 500 ml 360 ml Intake Oral 360 ml Other 650 ml Output Urine Total 0 ml Estimated Blood Loss 150 ml # Voids 0 Laboratory Tests Test 06/05/17 11:40 06/06/17 05:54 White Blood Count 6.3 TH/MM3 7.6 TH/MM3 Red Blood Count 4.18 MIL/MM3 3.92 MIL/MM3 Hemoglobin 12.8 GM/DL 12.0 GM/DL Hematocrit 40.2 % 38.2 % Mean Corpuscular Volume 96.1 FL 97.4 FL Mean Corpuscular Hemoglobin 30.5 PG 30.5 PG Mean Corpuscular Hemoglobin Concent 31.7 % 31.3 % Red Cell Distribution Width 18.6 % 18.5 % Platelet Count 204 TH/MM3 175 TH/MM3 Mean Platelet Volume 8.2 FL 7.9 FL Neutrophils (%) (Auto) 62.3 % Lymphocytes (%) (Auto) 18.3 % Monocytes (%) (Auto) 16.1 % Eosinophils (%) (Auto) 2.1 % Basophils (%) (Auto) 1.2 % Neutrophils # (Auto) 4.0 TH/MM3 Lymphocytes # (Auto) 1.2 TH/MM3 Monocytes # (Auto) 1.0 TH/MM3 Eosinophils # (Auto) 0.1 TH/MM3 Basophils # (Auto) 0.1 TH/MM3 CBC Comment DIFF FINAL Differential Comment Prothrombin Time 11.6 SEC Prothromb Time International Ratio 1.1 RATIO Activated Partial Thromboplast Time 29.4 SEC Blood Urea Nitrogen 51 MG/DL 63 MG/DL Creatinine 6.33 MG/DL 7.63 MG/DL Random Glucose 93 MG/DL 88 MG/DL Calcium Level 9.7 MG/DL 9.1 MG/DL Sodium Level 138 MEQ/L 139 MEQ/L Potassium Level 4.5 MEQ/L 5.2 MEQ/L Chloride Level 104 MEQ/L 105 MEQ/L Carbon Dioxide Level 21.8 MEQ/L 21.1 MEQ/L Anion Gap 12 MEQ/L 13 MEQ/L Estimat Glomerular Filtration Rate 8 ML/MIN 7 ML/MIN Orders Procedure Category Date Status Time Lactated Ringer's MED 06/05/17 In Process 1000 Ml Inj (Lr 1000 M 11:15 Sodium Chlorid 0.9% MED 06/05/17 In Process 500 Ml Inj (Ns 500 M 11:15 Metoprolol Tartrate MED 06/05/17 In Process (Lopressor) 11:15 Povidone Iod 5% MED 06/05/17 In Process Antisepsis Kit 11:15 Chlorhexidine 2% MED 06/05/17 In Process Cloth (Chlorhexidine 11:15 Insulin Human Regular MED 06/05/17 In Process Inj (Novolin R Inj 11:15 Basic Metabolic Panel LAB 06/05/17 Complete (Bmp) 11:08 Complete Blood Count LAB 06/05/17 Complete With Diff 11:08 Prothrombin Time / LAB 06/05/17 Complete Inr (Pt) 11:08 Act Partial Throm LAB 06/05/17 Complete Time (Ptt) 11:08 Type And Screen BBK 06/05/17 Complete 11:08 Chest, Single Ap RADDIAG 06/05/17 Resulted 11:08 Sodium Chloride 0.9% MED 06/05/17 In Process Flush (Ns Flush) 11:30 Heparin Inj (Heparin MED 06/05/17 In Process Inj) 11:30 Protamine Sulfate Inj MED 06/05/17 Complete (Protamine Sulfate 11:34 Heparin Inj (Heparin MED 06/05/17 Complete Inj) 11:34 Bupivacaine Pf 0.5% MED 06/05/17 Complete Inj (Marcaine Pf 0.5 11:35 Thrombin Top Rhodelia MED 06/05/17 Complete (Thrombin Top Rhodelia) 11:35 Heparin-Ns/Pf Inj MED 06/05/17 Complete (Heparin-Ns/Pf Inj) 11:35 Protamine Sulfate Inj MED 06/05/17 Complete (Protamine Sulfate 13:05 Heparin Inj (Heparin MED 06/05/17 Complete Inj) 13:05 Bupivacaine Pf 0.5% MED 06/05/17 Complete Inj (Marcaine Pf 0.5 13:05 Thrombin Top Rhodelia MED 06/05/17 Complete (Thrombin Top Rhodelia) 13:05 Heparin-Ns/Pf Inj MED 06/05/17 Complete (Heparin-Ns/Pf Inj) 13:05 Vancomycin Inj MED 06/05/17 Complete (Vancomycin Inj) 13:06 Place In Observation ADMITTING 06/05/17 Transmitted Code Status CODE 06/05/17 Transmitted 15:27 Vital Signs (Adult) JASPER 06/05/17 Complete 15:27 Fire Protection Specialist / JASPER 06/05/17 Complete Telemetry 15:27 Activity Oob Ad Yesika JASPER 06/05/17 In Process 15:27 Precautions JASPER 06/05/17 In Process 15:27 Diet Heart Healthy DIET 06/05/17 Transmitted Dinner Basic Metabolic Panel LAB 06/06/17 Complete (Bmp) 06:00 Cbc No Diff, Includes LAB 06/06/17 Complete Plts 06:00 Consult Nephrology CONS 06/05/17 Transmitted Oxycodone (Roxicodone) MED 06/05/17 Complete 15:30 Hydromorphone MED 06/05/17 Complete (Dilaudid) 15:30 Morphine Inj MED 06/05/17 Complete (Morphine Inj) 15:30 Docusate Sodium-Senna MED 06/05/17 In Process (Ivy-Colace) 21:00 Magnesium Hydroxide MED 06/05/17 In Process Liq (Milk Of Magnesi 15:30 Sennosides (Senokot) MED 06/05/17 In Process 15:30 Bisacodyl Supp MED 06/05/17 In Process (Dulcolax Supp) 15:30 Lactulose Liq MED 06/05/17 In Process (Lactulose Liq) 15:30 ^ Other Nursing Orders JASPER 06/05/17 In Process 15:27 Blood Glucose Goal JASPER 06/05/17 In Process (Criteria) 15:27 Hypoglycemia 70 Mg/Dl JASPER 06/05/17 In Process Or < 15:[address]: Zhanna JASPER 06/05/17 In Process 15:27 Dextrose 50% In Dain MED 06/05/17 In Process (Vial) Inj (D50w (Vi 15:30 Glucagon Inj MED 06/05/17 In Process (Glucagon Inj) 15:30 Insulin Aspart MED 06/05/17 In Process Supplemtl Scale 17:00 Albuterol MED 06/05/17 In Process Concentrated Neb 15:30 Aspirin Ec (Ecotrin MED 06/06/17 In Process Ec) 09:00 Atorvastatin (Lipitor) MED 06/05/17 In Process 21:00 Carvedilol (Coreg) MED 06/05/17 In Process 21:00 Furosemide (Lasix) MED 06/05/17 In Process 21:00 Levothyroxine MED 06/06/17 In Process (Synthroid) 06:00 Lorazepam (Ativan) MED 06/05/17 In Process 15:30 Meclizine (Antivert) MED 06/05/17 In Process 15:30 Nitroglycerin Sl MED 06/05/17 In Process (Nitrostat Sl) 15:30 Sertraline (Zoloft) MED 06/05/17 In Process 21:00 Heparin Inj (Heparin MED 06/06/17 In Process Inj) 15:00 *Ondansetron Inj MED 06/05/17 Complete (*Zofran Inj 15:47 (Hub Use Only)Inp Phy CONS 06/05/17 Transmitted Cons/Ref Misc Nursing MED 06/05/17 In Process Information 16:30 *Morphine Inj MED 06/05/17 Complete (*Morphine Inj 16:17 Sds Pre Op Care SDSC 06/05/17 Complete Blood Flow Rate JASPER 06/05/17 In Process 19:16 Dialysate Flow Rate JASPER 06/05/17 In Process 19:16 Dialyzer JASPER 06/05/17 In Process 19:16 Concentrate JASPER 06/05/17 In Process 19:16 Acid Concentrate JASPER 06/05/17 In Process 19:16 Length Of Dialysis JASPER 06/05/17 In Process 19:16 Frequency Of Dialysis JASPER 06/05/17 In Process 19:16 Dialysis Obtain JASPER 06/05/17 In Process 19:16 Needle Size JASPER 06/05/17 In Process 19:16 Dialysis Schedule JASPER 06/05/17 In Process 19:16 Resp Oxygen Chon C RSP 06/05/17 Logged Titrat 1-4 L Dialysis Weight JASPER 06/05/17 In Process 19:16 ^ Obtain As Needed JASPER 06/05/17 In Process 19:16 Sodium Chlor 0.9% MED 06/05/17 In Process 1000 Ml Inj (Ns 1000 M 19:16 Heparin Inj (Heparin MED 06/05/17 In Process Inj) 19:30 Sodium Chlor 0.9% MED 06/05/17 In Process 1000 Ml Inj (Ns 1000 M 19:16 Sodium Chlor 0.9% MED 06/05/17 In Process 1000 Ml Inj (Ns 1000 M 19:16 Mannitol Inj MED 06/05/17 In Process (Mannitol Inj) 19:30 Albumin 25% Inj MED 06/05/17 In Process (Albumin 25% Inj) 19:30 Sodium Chloride 0.9% MED 06/05/17 In Process Flush (Ns Flush) 19:30 Heparin Inj (Heparin MED 06/05/17 In Process Inj) 19:30 Gentamicin (Dialysis) MED 06/05/17 In Process Inj (Gentamicin (D 19:30 Ondansetron Inj MED 06/05/17 In Process (Zofran Inj) 19:30 Acetaminophen MED 06/05/17 In Process (Tylenol) 19:30 Diphenhydramine MED 06/05/17 In Process (Benadryl) 19:30 Nitroglycerin Sl MED 06/05/17 In Process (Nitrostat Sl) 19:30 Clonidine (Catapres) MED 06/05/17 In Process 19:30 Epoetin Lavon Inj MED 06/05/17 In Process (Epogen Inj) 19:30 Gelatin 12 Mm/7 Mm MED 06/05/17 In Process Top (Gelfoam 12 Mm/7 19:30 Class Iv Pacu Ea 30 [facility] 06/05/17 Complete MIN [facility] Complete Post Anest[facility]xygen [facility]17 Complete Bedside Glucose [facility] 06/[facility]/17 Complete Pacu Cpcu Holding [facility] 06/05/17 Complete Hourly Tramadol (Ultram) MED 06/06/17 In Process 09:00 Attending Discharge DISCHARGE 06/06/17 Transmitted Order Vital Signs Date Time Temp Pulse Resp B/P (MAP) Pulse Ox O2 Delivery O2 Flow Rate FiO2 06/06/17 10:43 98 06/06/17 08:01 98.7 82 18 130/80 (97) 100 06/06/17 08:00 82 06/06/17 07:01 83 06/06/17 06:00 82 06/06/17 05:45 18 06/06/17 05:00 82 06/06/17 04:44 98.2 88 18 133/88 (103) 98 06/06/17 04:00 80 06/06/17 03:00 80 06/06/17 02:00 80 06/06/17 01:00 82 06/06/17 00:00 82 06/05/17 23:01 98.0 83 18 147/88 (107) 98 06/05/17 23:00 81 06/05/17 22:00 80 06/05/17 21:08 96 Nasal Cannula 2.00 06/05/17 21:00 80 06/05/17 20:00 80 06/05/17 19:01 98.0 84 18 147/80 (102) 98 06/05/17 19:00 84 06/05/17 18:45 97.8 80 16 148/70 (96) 96 Nasal Cannula 2 06/05/17 18:00 79 16 140/68 (92) 96 Nasal Cannula 2 06/05/17 17:30 78 16 138/64 (88) 95 Nasal Cannula 2 06/05/17 17:00 79 16 144/67 (92) 96 Nasal Cannula 2 06/05/17 16:45 80 16 150/70 (96) 96 Nasal Cannula 2 06/05/17 16:30 98.1 81 16 158/69 (98) 95 Nasal Cannula 2 06/05/17 16:15 81 16 160/71 (100) 99 Nasal Cannula 3 06/05/17 16:00 80 16 159/77 (104) 96 Nasal Cannula 3 06/05/17 15:45 80 16 166/72 (103) 98 Nasal Cannula 4 06/05/17 15:35 98.4 81 24 146/72 (96) 96 Nasal Cannula 4 Discharge Condition: Good Discharge Disposition: Discharge Home Discharge Instructions: Arranged out pt f/u in 2W Leave a dry dressing on for 24 hours remove POD 2 Leave incision open to air starting on POD 3 NO tub baths until incision is fully healed Call the office to report any increased L sided hand pain, redness, drainage or swelling to LUE Activities as tolerated Raquel PEDERSON [facility]/[place] [phone] Any questions or concerns: Call [facility] V[facility] Surgery at [facility] [phone] Raquel Pratt Jun 06, 2017 12:26
[2017-06-06] MEDS: CARVEDILOL 12.5 MG TAB PO SCH (13:30)
[2017-06-06] MEDS: FUROSEMIDE 40 MG TAB PO SCH (13:30)
[2017-06-06] MEDS: SERTRALINE HCL 100 MG TAB PO SCH (13:30)
[2017-06-06] MEDS ORDERED: HEPARIN SODIUM - SQ 10,000 UNITS/ML VIAL SQ SCH (15:00)
== END 2017-06-06 15:03 | disposition home or self-care (01) ==
LOC: HSDC 10:42 → HSDI 15:32 → HCIS 18:58
PROVIDERS: ADMIT Surgery; ATTEND Surgery
DX: I13.2 Hypertensive heart and chronic kidney disease with heart failure and with stage 5 chronic kidney disease, or end stage renal disease (principal); N18.6 End stage renal disease; I50.9 Heart failure, unspecified; E11.22 Type 2 diabetes mellitus with diabetic chronic kidney disease; K21.9 Gastro-esophageal reflux disease without esophagitis; M10.9 Gout, unspecified; G47.33 Obstructive sleep apnea (adult) (pediatric); D63.1 Anemia in chronic kidney disease; I25.10 Atherosclerotic heart disease of native coronary artery without angina pectoris; J45.909 Unspecified asthma, uncomplicated; E78.5 Hyperlipidemia, unspecified; E03.9 Hypothyroidism, unspecified; Z92.3 Personal history of irradiation; Z99.81 Dependence on supplemental oxygen; Z92.21 Personal history of antineoplastic chemotherapy; Z85.3 Personal history of malignant neoplasm of breast; Z95.1 Presence of aortocoronary bypass graft; Z95.5 Presence of coronary angioplasty implant and graft; Z99.2 Dependence on renal dialysis
CPT/HCPCS: 01844; 36819; 71010; 76937; 80048; 82948; 85025; 85027; 85610; 85730; 86850; 86900; 86901; 90935; 96374; G0257; G0378; J1580; J1644; J2270; J2370; J2405; J2720; J3010; J3370; J7040; J7050